=== PATIENT | male | born 1955 | race Caucasian/White ===

== ENCOUNTER → 2016-09-14 | Outpatient (CLI) | payer BC ==
--- NOTE | 2016-09-15 09:35 | MRI ---
EXAM DESCRIPTION: Noncontrast MRI of the right shoulder CLINICAL HISTORY: Right shoulder pain COMPARISON: None TECHNIQUE: Multiplanar, multi sequence MRI images of the right shoulder were obtained without intra-articular contrast. FINDINGS: Full-thickness, fullwidth retracted tendon tear of the supraspinatus. Tendon retraction measures 3.1 cm on coronal image 10. Tear extends the entire with of the supraspinatus tendon to the supraspinatus/infraspinous tendon junction. AP diameter of the tear measures 3.8 cm on sagittal image 21. There is partial tearing of the infraspinatus tendon at the infiltrative/impression is tendon junction yet no high-grade partial or full-thickness emphysematous tendon tear. Teres minor tendon is intact. There is high-grade partial articular sided tearing of the subscapularis tendon with a few residual intact bursal sided fibers. This is best seen on sagittal images 15-18. Infraspinatus and supraspinatus muscles demonstrate grade II fatty infiltration with moderate volumetric atrophy. Longitudinal split tearing seen of the long head biceps tendon within the intertubercular groove. No evidence of subluxation. Biceps labral anchor is intact. There is degenerative fraying of the superior as well as posterior labrum without displaced labral tear. There is mild chondrosis of the glenohumeral joint. Severe degenerative changes of the acromioclavicular joint. There is resorptive cystic change seen at the greater and lesser tuberosities. Marked narrowing of the acromiohumeral interval with superior migration of the humeral head. No large joint effusion or loose body. Marrow signal is otherwise unremarkable without fracture or subluxation. IMPRESSION: 1. Full-thickness, fullwidth retracted supraspinatus tendon tear with high-grade partial subscapularis tendon tear. There is grade II fatty infiltration and moderate volumetric atrophy of the supraspinatus and infraspinatus musculature without edema. Superior migration of the humeral head with loss of acromial humeral interval suggestive of early signs of rotator cuff arthropathy. There is mild grade I patchy cartilage loss seen within the glenohumeral joint. 2. Longitudinal split tearing of the long head biceps tendon without subluxation. 3. Severe AC joint degenerative changes. 4. Other chronic incidental findings as above. Electronically signed by: Keagan Sam MD 09/15/2016 9:35 AM CDT
== END | disposition home or self-care (01) ==
LOC: MRI 07:33
PROVIDERS: ATTEND Family Medicine
DX: M75.121 Complete rotator cuff tear or rupture of right shoulder, not specified as traumatic (principal); M19.011 Primary osteoarthritis, right shoulder

== ENCOUNTER → 2017-03-26 | Outpatient (CLI) | payer BC | END | disposition home or self-care (01) | LOC: GMAL 12:21 | PROVIDERS: ATTEND Family Medicine | DX: Z00.00 Encounter for general adult medical examination without abnormal findings (principal) ==

== ENCOUNTER → 2018-01-06 | Outpatient (CLI) | payer BC | LOC: GMAL 11:55 | PROVIDERS: ATTEND Family Medicine | DX: E55.9 Vitamin D deficiency, unspecified (principal) ==

== ENCOUNTER → 2018-05-08 | Outpatient (CLI) | payer BC, MEDICARE | LOC: GMAL 11:33 | PROVIDERS: ATTEND Internal Medicine Cardiovascular Disease | DX: D51.3 Other dietary vitamin B12 deficiency anemia (principal); R53.83 Other fatigue; E55.9 Vitamin D deficiency, unspecified; Z12.5 Encounter for screening for malignant neoplasm of prostate | CPT/HCPCS: 82306; 82607; 84443; G0103 ==

== ENCOUNTER 2018-09-08 05:31 | Day surgery (SDC) | payer MEDICARE, OTHER ==
--- NOTE | 2018-09-07 14:18 | SSS ---
CHIEF COMPLAINT: History of colon polyps. HISTORY OF PRESENT ILLNESS: Mr. Felipe is a 63 year-old male who presented to my office for routine followup. It was noted that he was due for a repeat colonoscopy. Risks and benefits were discussed. He is agreeable withe proceeding. He has had 2 prior colonoscopies by this physician, both of which had polyps removed. PAST MEDICAL HISTORY: 1. Hypertension diagnosed in 2005. 2. Obstructive sleep apnea diagnosed in 2007. 3. Hyperlipidemia. 4. Erectile dysfunction. 5. Mild proteinuria. 6. Type 2 diabetes diagnosed in 1999. 7. 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 8. Right rotator cuff tendonitis. PAST SURGICAL HISTORY: 1. Vasectomy in the . 2. Colonoscopy in 2009 in which 2 small polyps were removed, one was an tubular adenoma, the other was a hyperplastic polyp. The adenoma was removed from the cecum. 3. Colonoscopy in 2013 where a 0.5 cm tubular adenoma was removed from his transverse colon. CURRENT MEDICATIONS: 1. Viagra p.r.n. 2. Lisinopril. 3. Metformin. 4. Celebrex. 5. Glimepiride. 6. Lipitor. 7. Vitamin D. 8. Baby aspirin. 9. B12. ALLERGIES: NONE. FAMILY HISTORY: Father is healthy. Mother has had a stroke. He has 3 brothers all of whom are healthy with the exception of a stepbrother who has had bypass surgery. He has a son, Nathan with type 2 diabetes and hypertension. He has 1 daughter. SOCIAL HISTORY: He is buildings painter. He is . He has 2 children. He has never smoked. He does consume beer on a regular basis. REVIEW OF SYSTEMS: Negative except as per History of Present Illness. PHYSICAL EXAMINATION: VITAL SIGNS: Blood pressure 120/70, height 5' 11", weight 209, pulse 84. GENERAL: He is awake and alert, and in no acute distress. HEENT: Unremarkable. NECK: Supple. CHEST: Lungs are clear. CARDIOVASCULAR: Regular rate and rhythm. ABDOMEN: Soft, non-tender. EXTREMITIES: Without edema. NEUROLOGIC: Nonfocal. RECTAL: Exam is deferred until time of colonoscopy. ASSESSMENT: 1. History of colon polyps. 2. Type 2 diabetes. PLAN: Colonoscopy on 09/08/18. #[id number] [facility]
[2018-09-08] MEDS ORDERED: LACTATED RINGERS 1,000 ML ONE (06:57)
[2018-09-08] MEDS ORDERED: LIDOCAINE 1% 10 ML VIAL INJ ONE (10:00)
[2018-09-08] MEDS ORDERED: PROPOFOL 200 MG/20 ML VIAL IV ONE (10:00)
[2018-09-08] MEDS ORDERED: LACTATED RINGERS 1,000 ML IVS ONE (11:45)
[2018-09-08] MEDS ORDERED: MIDAZOLAM INJ 2 MG/2 ML VIAL ONE (11:58)
--- NOTE | 2018-09-08 13:53 | OP ---
DATE OF PROCEDURE: 09/08/18 PREOPERATIVE DIAGNOSIS: 1. History of colonic polyps. POSTOPERATIVE DIAGNOSIS: 1. 0.25 x 0.25 cm proximal transverse colon polyps x2, both biopsied one to two times to obliteration, submitted in separate containers. 2. 0.25 x 0.25 cm distal transverse colon polyp, biopsied times one to obliteration. 3. 0.25 x 0.25 cm rectal polyp, biopsied times two to obliteration. 4. Otherwise normal colonoscopy to the cecum. PROCEDURE: 1. Colonoscopy. SURGEON: Rashel Mccormick MD. ESTIMATED BLOOD LOSS: Less than 1 mL. COMPLICATIONS: No immediate complications. TECHNIQUE: After informed consent was obtained from the patient, the patient was taken to the Endoscopy Suite and placed in the left lateral decubitus position. Incremental doses of Versed and propofol were given until adequate sedation was obtained. Digital rectal examination was performed, which was unremarkable. The colonoscope was then advanced into the patient's rectum and up through the sigmoid, descending, transverse and ascending colon to the level of the cecum. The usual cecal landmarks were identified. The terminal ileum could not be entered. Cecal photograph was taken. Overall, the bowel prep was very good with the exception of the cecum had a small amount of liquid stool which was suctioned out and in the rectum, there a moderate amount of stool was noted and suctioned out at the conclusion of the procedure. After the cecum was reached, the colonoscope was then slowly withdrawn taking great care to try to visualize all angeles of the colon in 360 degree fashion. The aforementioned polyps in the postoperative diagnosis were noted on withdrawal and all biopsied to obliteration and submitted in their own containers. In the rectum, the colonoscope was retroflexed upon itself. No significant abnormalities were noted here. The colonoscope was then unretroflexed and air was suctioned out of the patient's rectum. The patient tolerated the procedure well and was taken back to the recovery area in good condition. PLAN: Followup in my office in 7 to 10 days and repeat colonoscopy likely in 3 to 5 years. #[id number] [facility]
[2018-09-08 14:24] VITALS: BP 143/92; TEMP 97.7; O2SAT 98
== END 2018-09-08 13:57 | disposition home or self-care (01) ==
LOC: AMB 05:31
PROVIDERS: ATTEND Family Medicine
DX: Z12.11 Encounter for screening for malignant neoplasm of colon (principal); D12.3 Benign neoplasm of transverse colon; D12.8 Benign neoplasm of rectum; I10 Essential (primary) hypertension; G47.33 Obstructive sleep apnea (adult) (pediatric); E78.5 Hyperlipidemia, unspecified; E11.9 Type 2 diabetes mellitus without complications; Z86.010 Personal history of colon polyps; Z79.84 Long term (current) use of oral hypoglycemic drugs; Z79.82 Long term (current) use of aspirin; Z79.899 Other long term (current) drug therapy
CPT/HCPCS: 00812; 36416; 45380; 82948; 88305; J2250; J3490; J7120

== ENCOUNTER 2020-02-21 10:47 | Emergency (ER) | payer MEDICARE, OTHER ==
[2020-03-01] MEDS ORDERED: SODIUM CHLORIDE 0.9% (FLUSH) 10 ML SYG ONE (02:13)
== END 2020-02-21 11:05 | disposition left against medical advice (07) ==
LOC: ER 10:47
DX: Z53.21 Procedure and treatment not carried out due to patient leaving prior to being seen by health care provider (principal)